=== PATIENT | female | born 1960 | race Caucasian/White ===

== ENCOUNTER → 2021-04-11 00:01 | Outpatient (BNVA) | payer OTHER, SELFPAY | PROVIDERS: Family Provider Family Medicine; PCP Family Medicine; Visit Provider Obstetrics & Gynecology | DX: Z20.822 Contact with and (suspected) exposure to COVID-19 (principal) | CPT/HCPCS: 87635 ==

== ENCOUNTER 2021-04-16 07:32 | Day surgery (SDC) | payer OTHER, SELFPAY ==
--- NOTE | 2021-04-15 13:21 | ANES.PREANE2 ---
Pre-Anesthetic Assessment Height/Weight: Height 1.52 m Preop Diagnosis: Rectocele stage III, vaginal vault prolapse Operation Date: 04/16/21 10:20 Proposed Procedures p Posterior Repair [id number] N81.3 N99.3(Not Applicable) - Rubio Jaquez MD s Sacrospinous Ligament Suspension(Not Applicable) - Rubio Jaquez MD Was Beta Dejuan taken within 24 hours: N/A Was Clonidine taken within 24 hours: N/A Social No alcohol and No tobacco Exam alert, oriented x 3, clear to auscultation bilaterally and regular rate & rhythm Poor vision and hearing Airway Submandibular: within normal limits Cervical ROM: within normal limits Mallampati: Class II Dentition: full History/ROS No significant history except as noted Metabolic Morbid Obesity Anesthetic Plan ASA status: 2 Anesthesia: General Risk of > 500 ml blood loss (7ml/kg in children): No Medications/Allergies Home Medications Medication Instructions Recorded Confirmed Last Taken Type estradiol 0.5 mg tablet 0.5 mg PO DAILY #90 tab 12/30/20 04/15/21 Unknown Rx loratadine 10 mg capsule 10 mg PO DAILY 04/14/21 04/15/21 Unknown History Allergies Allergy/AdvReac Type Severity Reaction Status Date / Time No Known Allergies Allergy Verified 04/15/21 12:43 [facility] Anesthesia Medical History No pertinent past medical history Patient denies history of: diabetes, asthma, hypertension, seizures, DVT/PE PCP: Dr. Cisneros Surgical History History of surgery on left wrist 04/2018 for a fracture S/P cholecystectomy 11/30/2016--Laparoscopic procedure, performed by Dr. Kelly at [facility] in [place], [place]. -Complicated by gallstone in bile duct requiring ERCP 1 month later. S/P hysterectomy 02/16/2017--Total vaginal hysterectomy, Uterosacral ligament suspension, Anterior vaginal repair, Cystoscopy. Performed by Dr. Anthony Batres at [facility] in [place], [place]. S/P left rotator cuff repair 2010 Family History Father Stroke Mother Heart disease Thyroid condition Hyperlipidemia Sister Thyroid condition Denies family history of Colon cancer Ovarian cancer Diabetes Breast cancer Anesthesia complication Bleeding disorder Hypertension Uterine cancer Social History (Updated 04/14/21 @ 10:11 by Lianne Canseco RN) Smoking and tobacco status: never smoked Alcohol intake: never Data Anesthesia Cardiac Studies: No Data to Display
[2021-04-15 13:33] LABS: Add Urine Microscopic? NO; Charge for UA Resulting for Rev
[2021-04-15 13:39] LABS: Basophils % 0.4 %; Eosinophils # 0.2 10^3/uL (0.0-0.8); Eosinophils % 2.5 %; Hematocrit 44.4 % (37.0-47.0); Hemoglobin 14.6 g/dL (11.5-15.3); Lymphocytes # 2.3 10^3/uL (0.8-4.8); Lymphocytes % 30.4 %; Mean Corpuscular HGB Conc 32.9 g/dL (30.0-36.0); Mean Corpuscular Hemoglobin 32.2 pg (28.0-34.0); Mean Platelet Volume 10.5 fL (7.4-10.4); Monocytes # 0.8 10^3/uL (0.2-0.9); Monocytes % 10.4 %; Neutrophils % 56.2 %; Nucleated Red Blood Cells % 0 %; Platelet Count 356 10^3/cmm (130-400); Red Blood Count 4.53 10^6/uL (4.1-5.3); Red Cell Distribution Width 11.4 % (12.1-15.1); White Blood Count 7.5 10^3/uL (4.0-10.0)
[2021-04-15 14:07] LABS: Alanine Aminotransferase 12 U/L (0-33); Albumin Level 4.7 g/dL (3.5-5.2); Alkaline Phosphatase 58 IU/L (35-105); Aspartate Amino Transferase 20 U/L (0-32); Blood Urea Nitrogen 12 mg/dL (8-23); Calcium 9.8 mg/dL (8.5-10.5); Carbon Dioxide 25 mmol/L (22-29); Chloride 100 mmol/L (98-107); Globulin 3.3 g/dL (1.3-4.6); Glomerular Filtration Rate 101.3 mL/min (90-130); Glucose 88 mg/dL (65-115); Osmolality Calculated 287 mOsm/kg (285-295); Sodium 139 mmol/L (136-145); Total Bilirubin 0.4 mg/dL (0.15-1.2)
[2021-04-15 14:26] LABS: Bilirubin Urine Neg (Negative); Blood Urine Neg (Negative); Glucose Urine UA Norm (Normal); Ketones Urine Negative (Negative); Leukocyte Esterase Urine Negative (Negative); Nitrate Urine Negative (Negative); Protein Urine Neg (Negative); Urine Appearance Clear (CLEAR); Urine Color Yellow (Yellow); Urobilinogen Urine Neg (Negative); pH Urine 7 (5-7)
[2021-04-16] VITALS (14 sets, daily range): BP systolic 116–154; BP diastolic 62–81; PULSE 73–91; RESP 16–20; TEMP 36.4–37.1; O2SAT 94–99
--- NOTE | 2021-04-16 08:05 | W.PM.OPSUD ---
Surgery/Procedure H&P Update DATE OF PROCEDURE: April 16, 2021 DATE H&P PERFORMED: 04/15/21 H&P UPDATE INFORMATION: I have reviewed H&P completed within last 30 days and No changes to prior documentation PREOP DIAGNOSIS: Rectocele stage III, vaginal vault prolapse PLANNED PROCEDURE: Operation Date: 04/16/21 10:20 Proposed Procedures p Posterior Repair [id number] N81.3 N99.3(Not Applicable) - Rubio Jaquez MD s Sacrospinous Ligament Suspension(Not Applicable) - Rubio Jaquez MD
[2021-04-16] MEDS: sodium chloride 0.9% 500 ML IV (08:32)
[2021-04-16] MEDS: sodium chloride 0.9% 1,000 ML 30 ML IV (09:23)
--- NOTE | 2021-04-16 09:39 | P.ANESUD_ITS ---
Pre-Anesthetic Update Pre-Anesthetic Assessment: Date of Surgery/Procedure: 04/16/21 Preop Bernadette gnosis: Rectocele stage III, vaginal vault prolapse Proposed Procedure: Operation Date: 04/16/21 10:20 Proposed Procedures p Posterior Repair [id number] N81.3 N99.3(Not Applicable) - Rubio Jaquez MD s Sacrospinous Ligament Suspension(Not Applicable) - Rubio Jaquez MD Any changes to Pre-Anesthetic Assessment?: No Last Intake: Intake Last Liquid Date 04/15/21 Last Liquid Time 21:00 Last Solid Date 04/15/21 Last Solid Time 19:00 Labs Last 48hrs: Short CBC 04/15/21 Range/Units 13:05 WBC 7.5 (4.0-10.0) 10^3/ uL Hgb 14.6 (11.5-15.3) g/dL Hct 44.4 (37.0-47.0) % MCV 98.0 (81-99) fl Plt Count 356 (130-400) 10^3/c mm Neut % (Auto) 56.2 % Neut # (Auto) 4.20 (1.8-7.7) 10^3/u L BMP 04/15/21 13:05 Sodium 139 Potassium 4.0 Chloride 100 Carbon Dioxide 25 BUN 12 Creatinine 0.6 Glucose 88 Calcium 9.8 Liver Function 04/15/21 Range/Units 13:05 Total Bilirubin 0.4 (0.15-1.2) mg/dL AST 20 (0-32) U/L ALT 12 (0-33) U/L Alkaline Phosphata se 58 (35-105) IU/L Albumin 4.7 (3.5-5.2) g/dL Urine 04/15/21 Range/Units 13:05 Urine Color Yellow (Yellow) Urine Appearance Clear (CLEAR) Urine pH 7 (5-7) Ur Specific Gravit y 1.010 (1.005-1.030) Urine Protein Neg (Negative) Urine Glucose (UA) Norm (Normal) Urine Ketones Negative (Negative) Urine Nitrate Negative (Negative) Urine Bilirubin Neg (Negative) Ur Leukocyte Katya ase Negative (Negative) Blood Bank 04/15/21 13:05 Blood Type A Positive Rho(D) Type Positive Antibody Screen Negative Vitals: Temperature 97.6 F 04/16/21 08:00 Temperature Source Temporal Artery S can 04/16/21 08:00 Pulse Rate 77 04/16/21 08:00 Pulse Rhythm 04/16/21 08:00 Pulse Strength 3+ Normal 04/16/21 08:00 Respiratory Rate 18 04/16/21 08:00 Blood Pressure 154/81 04/16/21 08:00 Blood Pressure Dee n 105 04/16/21 08:00 Pulse Oximetry 99 04/16/21 08:00 Oxygen Delivery Me thod 04/16/21 08:00 Exam: Pre-Anes Outpt Exam: alert, oriented x 3, clear to auscultation bilaterally and regular rate & rhythm Cardiac Studies: No Data to Display
--- NOTE | 2021-04-16 13:13 | PM.OP ---
Operative Report Date of procedure: April 16, 2021 Pre-op diagnosis: Preop Diagnosis Rectocele stage III, vaginal vault prolapse Post-op diagnosis: Same Procedure done: Posterior colporrhaphy. Sacrospinous fixation Implants: Anchorsure Specimens removed/disposition: None Surgeon: Rubio Jaquez MD Estimated blood loss: 50 IV fluids: 1000 Urine output (mL): 200 Procedure: After obtaining informed consent, the patient was taken to the operating room and placed in the supine position, given general anesthesia, and prepped and draped in sterile fashion. The abdomen, vulva and vagina were prepped and draped in a sterile manner. A time out procedure was performed. The patient is placed in the dorsal lithotomy position and is prepped and draped in the usual manner. The posterior vaginal mucosa is opened in the routine fashion as in Posterior Repair. A finger is inserted through the incision in the posterior vaginal mucosa, dissecting out the rectovaginal space (RVS). The right rectal pillar (RRP) is identified. The rectal pillar can be bluntly perforated either with the [finger or with the tip of a long Tess clamp]. A [Devin-Navmicaela] retractor is used for exposing the rectovaginal space in order to enter the pararectal space with retraction of the cardinal ligament, vagina, and rectum. Displacing the rectum to the left and the cardinal ligament and ureter anteriorly. A sponge dissector is used to bluntly dissect the sacrospinous ligament removing areolar tissue. The ischial spine was palpated directly, and a area approximately 2 cm medial to the spine was selected for insertion of the Anchorsure transvaginal sacrospinous fixation system. One end of the suture of Anchoresure system inserted through the sacrospinous ligament is placed through the muscular layer of the vagina. In a similar manner, the second suture is placed. The opposite end of the suture in the sacrospinous ligament is left free and held on a small hemostat. Then traction on this suture will draw the vaginal vault directly to the ligament, where a square knot affixes it to the sacrospinous ligament. After the ji stich is tied the second safety stich is tied. Then the colporrhaphy/vaginal repair is carried out in routine fashion. An incision was made across the introitus. Metzenbaum scissors were used to tunnel beneath posterior vaginal mucosa until the apex of the rectocele bulge was reached. At this point, the rectum was from the posterior vaginal mucosa using sharp and blunt dissection, and the rectal bulge imbricated in the midline with interrupted sutures of 2-0 vicryl suture. Levator ani muscles on either side were approximated in the midline with interrupted 0 Vicryl sutures. Excess posterior vaginal mucosa was excised, and the vaginal episiotomy was repaired by approximating the posterior vaginal mucosa with a suture of Vicryl #0. Good hemostasis was noted. Sponge, lap, needle, and instrument counts were correct times three. The patient was taken to the recovery room, awake and in stable condition.
--- NOTE | 2021-04-16 13:44 | ANE.PACU2 ---
Inpatient post-anesthesia follow up: Airway intact: Yes Vital signs: Temperature 97.6 F Pulse Rate 85 Respiratory Rate 20 Blood Pressure 133/72 Pulse Oximetry 96 Oxygen Delivery Me thod Room Air Oxygen Flow Rate Fraction of Inspir ed Oxygen Hydration adequate: Yes Nausea and vomiting: No Pain level: 1 Mental status: Baseline
[2021-04-16] MEDS: fentaNYL 50 mcg/mL INJ 2mL IVP (14:29)
[2021-04-16] MEDS: HYDROcodone-acetaminophen 5-325 mg Tablet 1 TAB PO (14:59)
--- NOTE | 2021-04-16 18:20 | SUR.PHASEII ---
becerra d/c. 900ml urine emptied before d/c
== END 2021-04-16 18:54 | disposition home or self-care (01) ==
PROVIDERS: PCP Family Medicine; Visit Provider Obstetrics & Gynecology
PROC: (CPT 57250; principal; 2021-04-16 10:20)
PROC: (CPT 57282; 2021-04-16 10:20)
DX: N99.3 Prolapse of vaginal vault after hysterectomy (principal); E66.01 Morbid (severe) obesity due to excess calories; Z82.3 Family history of stroke; Z83.3 Family history of diabetes mellitus; Z82.49 Family history of ischemic heart disease and other diseases of the circulatory system
CPT/HCPCS: 57250; 57282; 36415; 80053; 81003; 85025; 86850; 86900; 96365; J0690; J1100; J1200; J2250; J2405; J2704; J3010; J7030; J7040